=== PATIENT | male | born 1980 | race Caucasian/White ===

== ENCOUNTER → 2024-05-19 | Outpatient (CLI) | payer MEDICAID, SELFPAY ==
[2024-05-19 11:26] LABS: Basophils # (Auto) 0.1 Thou/mm3 (0.0-0.2); Basophils % (Auto) 1 % (0-2.5); Eosinophils # (Auto) 0.2 Thou/mm3 (0.0-0.5); Eosinophils % (Auto) 2 % (0-10); Hematocrit 40.9 % (41.0-53.0); Hemoglobin 13.9 g/dL (13.5-16.0); Immature Granulocytes % (Auto) 0 % (0-0); Immature Granulocytes Auto 0.03 Thou/mm3 (0.00-0.00); Lymphocytes % (Auto) 36 % (10-50); Mean Corpuscular Hemoglobin 28.4 pg (25.0-35.0); Mean Corpuscular Volume 84 fL (80-100); Monocytes # (Auto) 0.7 Thou/mm3 (0.0-0.8); Monocytes % (Auto) 6 % (0-12); Neutrophils # (Auto) 6.2 Thou/mm3 (1.8-7.7); Neutrophils % (Auto) 55 % (37-80); Nucleated Red Blood Cell % 0 /100 WBC (0); Platelet Count 283 Thou/mm3 (140-440); RDW Standard Deviation 38.2 fL (35.1-43.9); Red Blood Count 4.89 Miln/mm3 (4.50-5.90); White Blood Count 11.2 Thou/mm3 (3.8-10.6)
[2024-05-19 11:27] LABS: Prothrombin Time 10.6 Seconds (9.0-12.2)
[2024-05-19 11:43] LABS: Alanine Aminotransferase 43 U/L (10-49); Alkaline Phosphatase 52 U/L (46-116); Aspartate Amino Transferase 18 U/L (0-34); Bilirubin,Direct < 0.1 mg/dL (0.0-0.3); Bilirubin,Total 0.2 mg/dL (0.3-1.2); Magnesium 1.7 mg/dL (1.6-2.6); Potassium 3.5 mMol/L (3.4-5.1); Sodium 139 mMol/L (136-145); Total Protein 6.5 gm/dL (5.7-8.2)
[2024-05-19 15:53] LABS: AFP Non-Pregnant < 1.30 ng/mL (<8.10)
== END | disposition home or self-care (01) ==
LOC: COPL 09:49
PROVIDERS: PCP Family Medicine; Referring Provider Internal Medicine Gastroenterology; Visit Provider Internal Medicine Gastroenterology
DX: K74.60 Unspecified cirrhosis of liver (principal); K76.0 Fatty (change of) liver, not elsewhere classified
CPT/HCPCS: 36415; 80076; 82105; 83735; 84132; 84295; 85025; 85610

== ENCOUNTER → 2024-05-26 | Outpatient (CLI) | payer MEDICAID, SELFPAY ==
--- NOTE | 2024-05-26 15:00 | XR_ITS ---
Examination: Abdomen sonogram, complete Date and time of exam: May 26, 2024 1510 hours INDICATIONS: Left upper abdominal pain and bloating 15 years, elevated liver function tests on laboratory examination May 19, 2024. Technique: Multiple real-time grayscale transabdominal sonographic images of the abdomen have been obtained. Findings: Absent gallbladder Normal common bile duct 0.3 cm Pancreatic head 3.6 cm Aorta not enlarged Liver 23.6 cm fatty infiltration Normal hepatopedal portal venous flow Patent IVC Right kidney 12.9 x 5.8 x 6.3 cm cortex 1.7 cm Left kidney 12.6 x 6.5 x 6.5 cm renal cortex 2.4 cm Mild bilateral renal parenchymal scar formation Spleen 12.3 cm IMPRESSION: Prominent pancreas, consider CT scan abdomen pelvis post intravenous contrast follow-up Significant hepatomegaly fatty liver
== END | disposition home or self-care (01) ==
LOC: CDIM 14:49
PROVIDERS: PCP Family Medicine; Referring Provider Internal Medicine Gastroenterology; Visit Provider Internal Medicine Gastroenterology
DX: K76.0 Fatty (change of) liver, not elsewhere classified (principal)
CPT/HCPCS: 76700

== ENCOUNTER → 2024-08-09 | Outpatient (CLI) | payer MEDICAID, SELFPAY ==
--- NOTE | 2024-08-09 10:30 | XR_ITS ---
Examination: CT abdomen, without intravenous contrast. CT pelvis, without intravenous contrast. CT abdomen, with intravenous contrast. CT pelvis, with intravenous contrast. 2-D sagittal coronal reconstructions. Date and time of exam:August 01, 2024 1042 hours INDICATIONS: Iron deficiency anemia, generalized abdominal pain bloating cirrhosis history diagnosis 2006 liver surgery 2006 CTDI: vol (mGy) 42.3 DLP: (mGycm) 2114 Technique: Multiple 3.0 axial images of the abdomen and pelvis without intravenous contrast, 3.0 mm slice thickness. Multiple 3.0 postcontrast images abdomen and pelvis also obtained, post intravenous injection 60 cc [id number] 2-D sagittal and coronal reconstructions. Low dose protocols were performed. One or more of the following dose reduction techniques were used; automated exposure control, adjustment of the mA and/or KV according to patient size, use of iterative reconstruction technique. Findings: Liver irregular in contour with diffuse fatty infiltration Spleen is not enlarged No pancreatic or adrenal mass Absent gallbladder No extra hepatic biliary tract dilatation No renal or ureteral calculi, no hydronephrosis IVC filter Aorta normal size Small lymph nodes in the right lower mesentery Normal appendix No bowel obstruction No diverticulitis No prostatomegaly Contracted urinary bladder with wall thickening up to 5 mm Moderate lumbar spondylosis IMPRESSION: Primary hepatocellular disease, fatty infiltration, no focal liver lesions No extrahepatic biliary tract dilatation. Small nonspecific lymph nodes in the right lower mesentery Normal appendix Mild thickening of urinary bladder wall, consider cystitis
== END | disposition home or self-care (01) ==
LOC: CCTX 10:22
PROVIDERS: PCP Physician Assistant; Referring Provider Internal Medicine Gastroenterology
DX: K76.0 Fatty (change of) liver, not elsewhere classified (principal); N32.89 Other specified disorders of bladder
CPT/HCPCS: 74178; A4649; Q9967